=== PATIENT | male | born 1995 | race Caucasian/White ===

== ENCOUNTER 2016-06-24 16:03 | Emergency (ER) | payer BC, OTHER ==
[~2016-06-24] VITALS: Ht 182.9 cm; Wt 109.0 kg
[~2016-06-24 16:03] MED LIST: ACYC800T57 PO; IBUP400T22 PO; PRED20TA PO
[2016-06-24 16:05] VITALS: Ht 182.9 cm; Wt 109.0 kg
[2016-06-24] MEDS ORDERED: AZIT250T94 PO (16:23)
[2016-06-24] MEDS ORDERED: GUAI-637 PO (16:24)
--- NOTE | 2016-06-24 16:34 | ERA ---
ER Documentation Chief Complaint Date/Time DATE: 06/24/16 TIME: 16:30 Chief Complaint COUGH , FEVER , CHEST CONGESTION X 5 DAYS HPI Patient is a 20-year-old male who presents to the emergency department with a cough, fever, chest congestion 5 days. Patient states that his cough is productive in nature with green phlegm production. Patient states that he has tactile fevers. Patient denies using a thermometer. Patient reports some shortness of breath however patient denies any chest pain, diaphoresis, arm pain , jaw pain. Patient denies any ear pain, throat pain, abdominal pain, nausea, vomiting or loss of consciousness. No recent travel. No sick contacts. ROS All systems reviewed and are negative except as per history of present illness. Medications Home Meds Active Scripts Guaifenesin* (Robitussin*) 100 Mg/5 Ml Syrup, 100 MG PO Q6H Y for COUGH, #1 BOT Prov:SUSAN SHELDON PA-C 06/24/16 Azithromycin* (Zithromax*) 250 Mg Tablet, 250 MG PO .ZPACK DIRECTED, #6 TAB TAKE 500 MG (2 TABS) THE FIRST DAY THEN 250 MG (1 TAB) DAYS 2-5 Prov:SUSAN SHELDON PA-C 06/24/16 Acyclovir* (Zovirax*) 800 Mg Tablet, 800 MG PO TID for 5 Days, TAB Prov:AGUSTÍN OSULLIVAN MD 10/22/15 Prednisone* (Prednisone*) 20 Mg Tab, 40 MG PO DAILY for 5 Days, TAB Prov:AGUSTÍN OSULLIVAN MD 10/22/15 Reported Medications Ibuprofen* (Ibuprofen*) 400 Mg Tablet, 400 MG PO TID, TAB 01/04/15 Allergies Allergies: Coded Allergies: No Known Allergy (Unverified , 01/21/15) PMhx/Soc History of Surgery: Yes (RIGHT JAW SX.) Anesthesia Reaction: No Hx Neurological Disorder: No Hx Respiratory Disorders: No Hx Cardiac Disorders: No Hx Psychiatric Problems: No Hx Miscellaneous Medical Probl: Yes (RIGHT LIPOMA) Hx Alcohol Use: No Hx Substance Use: No Hx Tobacco Use: No FmHx Family History: No diabetes Physical Exam Vitals Vital Signs Date Time Temp Pulse Resp B/P Pulse Ox O2 Delivery O2 Flow Rate FiO2 3/5/17 16:05 99.1 86 18 130/74 95 Physical Exam GENERAL: Well-developed, well-nourished male. Appears in no acute distress. Speaking in full sentences HEAD: Normocephalic, atraumatic. No deformities or ecchymosis. EYE: Pupils equal, round, and reactive to light. EOMs intact. No conjunctival erythema. No eye discharge. ENT: External ear without any masses or tenderness. Auditory canals clear bilaterally. TM visualized bilaterally, non-erythematous, non-bulging. Nasal mucosa pink with no discharge. Oropharynx is pink without any tonsillar erythema or exudates. No uvula deviation. No kissing tonsils. Nontender to palpation of bilateral mastoid processes NECK: Supple. No meningismus. Normal ROM of the neck. LUNG: Clear to auscultation bilaterally. No rhonchi, wheezing, rales or coarse breath sounds. HEART: Regular rate and rhythm. No murmurs, rubs or gallops. BACK: No midline tenderness. EXTREMITES: Equal pulses bilaterally. No peripheral clubbing, cyanosis or edema. No unilateral leg swelling. NEUROLOGIC: Alert and oriented to person, place and time. Moving all four extremities. 5/5 strength in all extremities. Normal speech. Steady gait. SKIN: Normal color. Warm and dry. No rashes or lesions. Procedures/MDM MEDICAL DECISION MAKING: This is a 20-year-old male who presents with a cough, chest congestion and fever 5 days. Patient reports tactile fevers. Vital signs were reviewed. Patient was afebrile. Patient was not hypoxic. ENT exam was normal. Lung exam was normal. Given these findings, the patient's presentation is most consistent with acute bronchitis. I have a much lower clinical concern for bacterial infections including pneumonia, meningitis, sinusitis, otitis externa , acute otitis media, strep pharyngitis, epiglottitis or peritonsillar abscess. PRESCRIPTIONS: Robitussin cough syrup, Z-Jaskaran Tylenol/Ibuprofen for fever and pain control. DISCHARGE: At this time, patient is stable for discharge and outpatient management. Supportive therapies such as OTC throat lozenges, salt water gurgles, popsicles and jello discussed. I have instructed the patient to follow-up with his/her primary care physician in 1-2 days. I have instructed the patient to promptly return to the ER for any new or worsening symptoms including increased pain, swelling, fever, nausea, vomiting, weakness or difficulty breathing. The patient and/or family expressed understanding of and agreement with this plan. All questions were answered. Home care instructions were provided. Departure Diagnosis: Primary Impression: Acute bronchitis Qualified Code: J20.9 - Acute bronchitis, unspecified organism Condition: Stable Patient Instructions: Acute Bronchitis Referrals: [facility] Additional Instructions: Call your primary care doctor TOMORROW for an appointment during the next 1-2 days.See the doctor sooner or return here if your condition worsens before your appointment time. SUSAN SHELDON PA-C Jun 24, 2016 16:34
== END 2016-06-25 16:34 | disposition home or self-care (01) ==
LOC: E/R 16:03
DX: J20.9 Acute bronchitis, unspecified (principal)
CPT/HCPCS: 99283